=== PATIENT | female | born 1950 | race Caucasian/White ===

== ENCOUNTER 2024-11-18 10:57 | Outpatient (REF) | payer MEDICARE, SELFPAY ==
--- NOTE | ~2024-11-18 | US_ITS ---
EXAMINATION: US RETROPERITONEUM HISTORY: CHRONIC KIDNEY DISEASE ,STAGE 3B, RENAL OSTEO TECHNIQUE: Real-time grayscale ultrasound imaging of the kidneys was performed and images were reviewed. COMPARISON: There are no prior studies available for comparison. FINDINGS: Right kidney: The right kidney measures 9.9 x 4.9 x 4.3 cm. Renal parenchymal echotexture and thickness are normal. Linear echogenic foci likely represent vessels. There are no masses. There is no hydronephrosis or renal calculi. Left Kidney: The left kidney measures 9.5 x 5.1 x 4.5 cm. Renal parenchymal echotexture and thickness are normal. Linear echogenic foci likely represent vessels. There are no masses. There is no hydronephrosis or renal calculi. The urinary bladder is unremarkable. Bilateral ureteral jets are identified. Before voiding, the urinary bladder measured 7.6 x 4.5 x 8.9 cm, for an estimated volume of 159 mL. After voiding, the urinary bladder measured 1.9 x 2.1 x 1.6 cm, for an estimated volume of 3.3 mL. US/US retroperitoneal comp IMPRESSION: 1. Unremarkable retroperitoneal ultrasound. 2. Post void bladder residual of 3.3 mL. Electronically signed by: Jean Marie Sandhu MD 11/18/2024 12:17 PM EDT
--- OUTSIDE RECORDS SUMMARY | 2024-11-18 15:07 | XMS_ITS | Clinical Summary ---
Author Organization [facility] [address] [facility] [address] Address [address] [place] [address] Phone Care Team Providers Care Rd Mechanical Engineer Name Role Phone Lindsay Knott MD Primary Care Prov ider Allergies Active Allergy Reactions Criticality Noted Date Comments Sulfamethoxazole-Trimethoprim Rash 2024 Bee Venom Protein (Honey Bee) Swelling 2024 Cephalexin Rash 08/10/2024 Clindamycin Hcl Rash 05/15/2009 Other Numbness 07/10/2010 Penicillins Rash 01/22/2006 Medications anastrozole (ARIMIDEX) 1 mg Take 1 tablet (1 mg total) by mouth 1 (one) time each day Active ascorbic acid (VITAMIN C) 250 MG chewable tablet Chew 2 tablets (500 mg total) 1 (one) time each day. Active calcium carbonate (CALCIUM ORAL) Take by mouth. Active carBAMazepine (TEGretol) 200 mg tablet Take 1 tablet (200 mg total) by mouth 1 (one) time each day. 1.5 in the am, 1.5 in the evening Active EPINEPHrine (EpiPen 2-Arnold) 0.3 mg/0.3 mL injection Inject 1 Units as directed if needed. bee sting 3 Active levothyroxine (SYNTHROID, LEVOTHROID) 75 mcg tablet Take 125 mcg by mouth 1 (one) time each day. Active MULTIVITAMIN ORAL Take 1 tablet by mouth 1 (one) time each day. Active indapamide (LOZOL) 1.25 mg tablet Take 1 tablet (1.25 mg total) by mouth 1 (one) time each day in the morning. 30 each 11 4 025 Active atorvastatin (LIPITOR) 40 mg tablet TAKE 1 TABLET BY MOUTH EVERY DAY 90 tablet 1 5 Active lisinopriL (PRINIVIL,ZEST RIL) 20 mg tablet TAKE 1 TABLET BY MOUTH EVERY DAY 90 tablet 1 5 Active lisinopriL (PRINIVIL,ZEST RIL) 20 mg tablet TAKE 1 TABLET BY MOUTH EVERY DAY 90 tablet 1 5 025 Discontinued Active Problems Problem Noted Date Diagnosed Date History of retinal detachment 09/06/2024 Cardiac murmur 01/18/2024 Primary hypertension 11/20/2022 Hyperlipidemia 07/26/2021 Overview (01/18/2024): ASCVD risk score 9.0% based on recent labs and blood pressure values with recommendation for moderate intensity statin. Optimal risk is 6.2% Heart murmur 12/24/2018 Overview (01/18/2024): Heart murmur Colon polyp 10/05/2017 Overview (01/18/2024): [place] [facility] 09/2017. 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 10/24 left foot Fatty liver 07/29/2015 Overview (01/18/2024): On u/s Breast atypical lobular hyperplasia 08/24/2012 Trigeminal neuralgia 05/19/2009 Psoriasis 06/09/2006 Hypothyroidism 01/22/2006 Encounters Date Type Department Care Team Description 09/06/2024 1:30 PM EDT Office Visit Adult Medicine [address] [address] Enrique Escalante PA Primary hypertension (Primary Dx); Mixed hyperlipidemia; Hypothyroidism, unspecified type; Breast atypical lobular hyperplasia; History of retinal detachment from Last 3 Months Immunizations Name Administration Dates Next Due Influenza Quadravalent, 0.5m l (Fluad) 65yo and older 02/07/2022 Influenza trivalent, 0.5mL ( Fluad) 65yo and older 11/20/2022,12/11/2020,12/07/2019 Influenza trivalent, with pr eservative (Fluzone; Afluria) 6mo and older 12/07/2019 EnzySurge SARS-CoV-2 COVID-19, mRNA, LNP-S, preservative free 01/01/2021,04/26/2020,04/20/2020 Pneumococcal conjugate 20 va lent (Prevnar 20, PCV 20) 2mo and older 01/15/2023 Td Tetanus diptheria (Tdvax) 7yo and older 09/19,11/16/1998 Tdap Tetanus diptheria acell ular pertussis (Boostrix; Adacel) 7yo and older 09/20/2009 Varicella live (Varivax) 12mo and older 12/15/19 14,11/04/2013 Surgical History Surgery Date Site/Laterality Comments HYSTERECTOMY PROCEDURE: HISTORICAL HYSTERECTOMY Medical History Medical History Date Comments Unspecified hypothyroidism 01/22/2006 DX:Un specified hypothyroidism Other psoriasis and similar disorders 06/09/2006 DX:Other psoriasis and similar disorders Trigeminal neuralgia 05/19/2009 DX:Trigemin al neuralgia H/O: hysterectomy 08/24/2009 DX:H/O: hyster ectomy Fatty liver 07/29/2015 DX:Fatty liver; COMMENT: On u/s Colon polyp 10/05/2017 DX:Colon polyp; COMMENT: [place] dr simon 09/2017. Due in 5 yrs Hyperlipidemia 07/26/2021 DX:Hyperlipidemi a; COMMENT: ASCVD risk score 9.0% based on recent labs and blood pressure values with recommendation for moderate intensity statin. Optimal risk is 6.2% Family History Medical History Relation Name Comments Colon cancer Aunt No Known Problems Daughter 1 No Known Problems Daughter 2 Diabetes Father Heart attack Father Hyperlipidemia Mother Stroke Mother age 79 Hypertension Sister 1 pacemaker Sister 2 No Known Problems Sister 3 No Known Problems Sister 4 No Known Problems Son Relation Name Status Comments Aunt Daughter 1 Alive Daughter 2 Alive Father Mother Sister 1 Alive Sister 2 Alive Sister 3 Alive Sister 4 Alive Son Alive Social History Tobacco Use Types Packs/Day Years Used Date Smoking Tobacco: Former Cigarettes Q uit: 1994 Smokeless Tobacco: Former Tobacco Cessation:Counseling Given: Not Answered Alcohol Use Standard Drinks/Week Comments Yes 0 (1 standard drink = 0.6 oz pur e alcohol) 1-2 drinks on weekends Housing Instability Answer Date Recorde d Are you worried that in the next 2 months you may not have stable housing? No 02/19/2024 Food Access & Nutrition Answer Date Rec orded Do you have access to a vari ety of food including fruits and vegetables? Yes 02/19/2024 Access to Healthcare Answer Date Record ed Within the last 3 months, ho w many times did you visit the emergency department for your medical care? 0 02/19/2024 Health Literacy Answer Date Recorded How often do you need to hav e someone help you when you read instructions, pamphlets, or other written material from your doctor or pharmacy? Never 02/19/2024 Caregiver: How often do you need to have someone help you when you read instructions, pamphlets, or other written material from your doctor or pharmacy? Not on file 02/19/2024 Financial Risk Answer Date Recorded How hard is it for you to pa y for the very basics like food, housing, medical care, and air conditioning / heating? Not very hard 02/19/2024 Transportation Answer Date Recorded Has the lack of transportati on kept you from meetings, work, or from getting things needed for daily living? No Has the lack of transportati on kept you from medical appointments or from getting medications? No 02/19/2024 Social Isolation Answer Date Recorded How often do you feel lonely or isolated from th ose around you? Never 02/19/2024 Food Risk Answer Date Recorded Within the past 12 months we worried whether our food would run out before we got money to buy more. Never true 02/19/2024 Within the past 12 months th e food we bought just didn't last and we didn't have money to get more. Never true 02/19/2024 Dependent Care Answer Date Recorded Do you need help finding or paying for care for your loved ones. For example, rn maternal child or elderly care for an older adult? No 02/19/2024 Education Answer Date Recorded Do you think completing more education or training, like finishing a GED, going to college, or learning a trade, would be helpful for you? No 02/19/2024 Employment and Income Answer Date Recor ded During the last four weeks, have you been actively looking for work? No 02/19/2024 Living Situation Answer Date Recorded What is your living situation? 1 04/21/2023 Comments No Sex and Gender Information Value Date Recorded Sex Assigned at Female 01/12/2024 11:18 AM EST Legal Sex Female 8:57 PM EST Gender Identity Female 01/12/2024 11:18 AM EST Sexual Orientation Not on file Occupation Industry Job Start Date Job End Date RETIRED Not on file Not on file Not on file Obstetrics History Last Filed Vital Signs Vital Sign Reading Time Taken Comments Blood Pressure 124/88 09/06/2024 1:14 PM EDT Pulse 73 09/06/2024 1:14 PM EDT Temperature 36.8 C (98.2 F) 09/06/2024 1:14 PM EDT Respiratory Rate - - Oxygen Saturation - - Inhaled Oxygen Concentration - - Weight 86.6 kg (191 lb) 09/06/2024 1:14 PM EDT Height 165.1 cm (5' 5 ) 09/06/2024 1:14 PM EDT Body Mass Index 31.78 09/06/2024 1:14 PM EDT Plan of Treatment Upcoming Encounters Date Type Department Care Team (Late st Contact Info) Description 03/08/2025 9:30 AM EST Office Visit Adult Medicine [facility] [address] [place] [address] Enrique Escalante PA [address] [place] [address] 03/15/2025 1:30 PM EST Consult Nephrology - [address] [place] [phone] Anthony Gonzáles MD [address] [place] [id number] Health Maintenance Due Date Last Done Comments Breast Cancer Screening 1950 Zoster Vaccines (1 of 2) 02/08/2014 12/14/2013, 10/09 COVID-19 Vaccine ( season) 2024 12/20/2021, 01/01/2021, 05/18/2020, Additional history exists Influenza Vaccine (#1) 2024 , 02/07/2022, 12/11/2020, Additional history exists Medicare Annual Wellness Visit 02/18/2025 02/19/2024 Social Influencers of Health Screening 02/18/2025 02/19/2024 Falls Risk Assessment 09/06/2025 09/06/2024, 024 Hypertension/CHF/CAD Annual BMP Blood Test 09/06/2025 09/06/2024, 05/04/2024, 04/13/2024, Additional history exists RSV Immunization Adult Patients (1 - 1-dose 75+ series) 2027 Colorectal Cancer Screening: Colonoscopy 01/21/2028 01/20/2023, 10/05/2017 Cholesterol Screening (Lipid Panel) 03/05/2029 03/05/2024 DTaP,Tdap,and Td Vaccines (4 - Td or Tdap) 09/19/2032 09/19/2022, 09/20/2009, 11/16/1998 Osteoporosis Screening (Bone Density Screening) 09/08/2034 09/08/2024, 07/25/2024 Varicella Vaccines Aged Out 12/14/2013, 11/04/2013 No longer eligible based on patient's age to complete this topic Pneumococcal Vaccine: 50+ Years Completed 01/15/2023 Depression Screening Completed 09/01/2024 Hepatitis C Screening Completed 11/02/2024, 013 HIB Vaccines Aged Out No longer eligi ble based on patient's age to complete this topic HPV Vaccines Aged Out No longer eligi ble based on patient's age to complete this topic Hepatitis A Vaccines Aged Out No long er eligible based on patient's age to complete this topic Hepatitis B Vaccines Aged Out No long er eligible based on patient's age to complete this topic IPV Vaccines Aged Out No longer eligi ble based on patient's age to complete this topic MMR Vaccines Aged Out No longer eligi ble based on patient's age to complete this topic Meningococcal ACWY Vaccine Aged Out N o longer eligible based on patient's age to complete this topic Meningococcal B Vaccine Aged Out No l onger eligible based on patient's age to complete this topic RSV Immunization Patients Under 20 months Aged Out No longer eligible based on patient's age to complete this topic Procedures Procedure Name Priority Date/Time Associated Diagnosis Comments BD BONE DENSITY DXA APPENDICULAR SKELETON Routine 09/08/2024 3:56 PM EDT BASIC METABOLIC PANEL Routine 09/06/2024 2:00 PM EDT Primary hypertension LIPID PANEL WITH REFLEX TO DIRECT LDL Routine 03/05/2024 9:59 AM EST Mixed hyperlipidemia HM COLONOSCOPY Routine 10/05/2017 HEPATITIS C SCREENING Routine 11/02/2012 from Last 3 Months or Most Recently Relevant to Health Maintenance Results * BD Bone Density DXA Appendicular Skeleton (09/08/2024 3:56 PM EDT) Anatomical Region Laterality Modality Body Bone Densitometr y Enrique CRUZ IMG DXA PROCEDURES Final Resul t * (ABNORMAL) Basic metabolic panel (09/06/2024 2:00 PM EDT) Sodium 137 133 - 145 mmol/L LAB CHEMISTRY METHOD 09/06/2024 3:46 PM EDT [facility] Potassium 4.9 3.5 - 5.5 mmol/L LAB CHEMISTRY METHOD 09/06/2024 3:46 PM EDT [facility] Chloride 105 96 - 110 mmol/L LAB CHEMISTRY METHOD 09/06/2024 3:46 PM T [facility] CO2 25 21 - 32 mmol/L LAB CHEMISTRY METHOD 09/06/2024 3:46 PM T [facility] Anion Gap 7 3 - 11 LAB CHEMISTRY METHOD 09/06/2024 3:46 PM EDT [facility] Glucose 95 70 - 100 mg/dL LAB CHEMISTRY METHOD 09/06/2024 3:46 PM EDT [facility] BUN 33(H) 5 - 25 mg/dL LAB CHEMISTRY METHOD 09/06/2024 3:46 PM EDT [facility] Creatinine 1.40(H) 0.50 - 1.10 mg/dL LAB CHEMISTRY METHOD 09/06/2024 3:46 PM EDT [facility] eGFR 40(L) >=60 mL/min/1. 73m2 LAB CHEMISTRY METHOD 09/06/2024 3:46 PM EDT [facility] Comment:Calculation based on the Chronic Kidney Disease Epidemiology Collaboration (CKD-EPI) equation refit without adjustment for race. BUN/Creatinine Ratio 23.6 LAB CHEMISTRY METHOD 09/06/2024 3:46 PM EDT [facility] Calcium 9.3 8.5 - 10.5 mg/dL LAB CHEMISTRY METHOD 09/06/2024 3:46 PM EDT [facility] Blood Venous blood specimen / Unknown Venipuncture / Unknown 09/06/2024 2:00 PM EDT 09/06/2024 2:00 PM EDT us Enrique CRUZ LAB BLOOD ORDERABLES Final Res ult [facility] [address] [place] [address], * (ABNORMAL) Lipid panel with reflex to direct LDL (03/05/2024 9:59 AM EST) Cholesterol 219(H) 0 - 200 mg/dL LAB CHEMISTRY METHOD 03/05/2024 12:21 PM EST [facility] Triglycerides 41 0 - 150 mg/dL LAB CHEMISTRY METHOD 03/05/2024 12:21 PM EST [facility] HDL 113 >=40 mg/dL LAB CHEMISTRY METHOD 03/05/2024 12:21 PM EST [facility] LDL Calculated 98 0 - 100 mg/dL LAB CHEMISTRY METHOD 03/05/2024 12:21 PM EST [facility] VLDL Cholesterol Eric 8.2 mg/dL LAB CHEMISTRY METHOD 03/05/2024 12:21 PM EST [facility] Non HDL Chol. (LDL+VLDL) 106 <145 mg/dL LAB CHEMISTRY METHOD 03/05/2024 12:21 PM EST [facility] Chol/HDL Ratio 1.9 0.0 - 4.4 LAB CHEMISTRY METHOD 03/05/2024 12:21 PM EST [facility] Blood Venous blood specimen / Unknown Venipuncture / Unknown 03/05/2024 9:59 AM EST 03/05/2024 9:59 AM EST Enrique CRUZ LAB BLOOD ORDERABLES Final Res ult [facility] [address] [place] [address], * Colonoscopy (10/05/2017) Colonoscopy no interpretation , abstracted Anatomical Region Laterality Modality Other Historical Provider HEALTH MAINTENANCE Final Result * Hepatitis C Screening (11/02/2012) Pathologist [facility] Hepatitis C Screening abstracted Historical Provider HEALTH MAINTENANCE Final Result from Last 3 Months or Most Recently Relevant to Health Maintenance Insurance MEDICARE [facility] Care Teams Rd Mechanical Engineer Relationship Specialty Start Date End Date Lindsay Knott MD PCP - General Internal Medicine 01/29/21
--- OUTSIDE RECORDS SUMMARY | 2024-11-18 15:07 | XMS_ITS | Clinical Summary ---
Author Organization [facility] Address [address] [place] [address] [place] [address] Phone Care Team Providers Care Regroover Name Role Phone Lindsay Knott MD Primary Care Pr ovider Allergies Active Allergy Reactions Criticality Noted Date Comments Cephalexin Rash Low 04/21/2024 Clindamycin Rash Low 05/15/2009 Other Other (see comments) 07/10/2010 Penicillins Rash Low 01/22/2006 Other Reaction(s): itching Sulfamethoxazole-Trimet hoprim Rash Low 06/27/2021 Medications anastrozole (ARIMIDEX) 1 MG chemo tablet Take 1 tablet by mouth 04/07/2021 Active ascorbic acid (VITAMIN C) 250 MG chewable tablet Chew 06/13/2022 Active atorvastatin (LIPITOR) 40 MG tablet Take 40 mg by mouth in the morning. 06/13/2022 Active carBAMazepine (TEGretol) 200 MG tablet Take 200 mg by mouth in the morning. 05/11/2013 Active levothyroxine (Synthroid) 125 MCG tablet Take 125 mcg by mouth every morning 06/10/2021 Active LISINOPRIL PO Take 20 mg by mouth 12/13/2022 Active lisinopril 20 MG tablet Take 20 mg by mouth in the morning. 05/04/2024 Active indapamide (LOZOL) 2.5 MG tablet Take 2.5 mg by mouth 1 (one) time each day in the morning Active Multiple Vitamin (multivitamin) tablet Take 1 tablet by mouth 1 (one) time each day Active Calcium Carb-Cholecalci ferol (CALCIUM 500 +D PO) Take by mouth Active Active Problems Problem Noted Date Diagnosed Date Microcalcifications of the breast 10/28/2024 Benign mammary dysplasia 10/28/2024 Stage 3b chronic kidney disease 10/28/2024 Renal osteodystrophy 10/28/2024 H/O: retinal detachment 09/06/2024 Malignant tumor of breast 04/16/2023 Essential hypertension 11/20/2022 Hyperlipidemia 07/26/2021 Overview (10/12/2024): ASCVD risk score 9.0% based on recent labs and blood pressure values with recommendation for moderate intensity statin. Optimal risk is 6.2% Cardiac murmur 12/24/2018 Overview (10/28/2024): Heart murmur Polyp of colon 10/05/2017 Overview (10/12/2024): [place] [facility] simon 09/2017. 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 Overview (10/28/2024): S/p 7.6 mCi I-131 in 1999 for hyperthyroidism due to Graves Encounters Date Type Department Care Team Description 11/02/2024 Orders Only [facility] [address] [place] [address] [address] [place] [address] Nathanael Gonzalez MD 10/28/2024 4:15 PM EDT Office Visit [facility] [address] [place] [address] Nathanael Gonzalez MD Stage 3b chronic kidney disease (HCC) (Primary Dx); Essential hypertension; Renal osteodystrophy from Last 3 Months Immunizations Immunization Administration Dates Next Due Influenza Vaccine, Quadrival ent, Adjuvanted 02/07/2022 Influenza, Trivalent, Adjuvanted 11/20/2022,10/0 06/2020,12/07/2019 Pfizer SARS-COV-2 01/01/2021,,04/26/2020,2020 Td 09/19/2022,11/16/1998 Tdap 09/20/2009 Varicella 12/14/2013,11/04/2013 Family History Relation Status Comments Father Mother Social History Tobacco Use Types Packs/Day Years Used Date Smoking Tobacco: Never Smokeless Tobacco: Never Tobacco Cessation:Counseling Given: Not Answered Alcohol Use Standard Drinks/Week Comments Never 0 (1 standard drink = 0.6 oz pur e alcohol) Comments Unknown Sex and Gender Information Value Date Recorded Sex Assigned at Not on file Legal Sex Female 1:12 PM EDT Gender Identity Not on file Sexual Orientation Not on file Last Filed Vital Signs Vital Sign Reading Time Taken Comments Blood Pressure 126/60 10/28/2024 1:54 PM EDT Pulse 92 10/28/2024 1:54 PM EDT Temperature - - Respiratory Rate - - Oxygen Saturation 98% 10/28/2024 1:54 PM EDT Inhaled Oxygen Concentration - - Weight 86.9 kg (191 lb 9.6 oz) 10/28/2024 1:54 P M EDT Height - - Body Mass Index - - Plan of Treatment Upcoming Encounters Date Type Department Care Team (Late st Contact Info) Description 12/06/2024 1:45 PM EDT [facility] Visit [facility] [address] [place] [address] Nathanael Gonzalez MD [address] [facility] [address] [place] [address] Health Maintenance Due Date Last Done Comments Breast Cancer Screening 1950 Pneumococcal Vaccine: 50+ Years (1 of 2 - PCV) 1971 Colorectal Cancer Screening: Annual FOBT 2001 Colorectal Cancer Screening: Colonoscopy 2001 Colorectal Cancer Screening: Sigmoidoscopy 2001 Influenza Vaccine (#1) 2024 3, 02/07/2022, 12/11/2020, Additional history exists Hepatitis B Vaccine Aged Out No longe r eligible based on patient's age to complete this topic Procedures Procedure Name Priority Date/Time Associated Diagnosis Comments ANTINUCLEAR ANTIBODIES TITER AND PATTERN Routine 11/02/2024 10:09 AM EDT KAPPA/LAMBDA FREE LT CHAINS W/RATIO Routine 11/02/2024 10:09 AM EDT INTERPRETATION Routine 11/02/2024 10:09 AM EDT HEPATITIS B CORE ANTIBODY, IGM Routine 11/02/2024 10:09 AM EDT PTH, INTACT Routine 11/02/2024 10:09 AM EDT HEPATITIS B SURFACE ANTIGEN Routine 11/02/2024 10:09 AM EDT MAGNESIUM Routine 11/02/2024 10:09 AM EDT VITAMIN D 25 HYDROXY Routine 11/02/2024 10:09 AM EDT C3 COMPLEMENT Routine 11/02/2024 10:09 AM EDT HEPATITIS B SURFACE AB (QUAL) Routine 11/02/2024 10:09 AM EDT C4 COMPLEMENT Routine 11/02/2024 10:09 AM EDT HEPATITIS C VIRUS (HCV) ANTIBODY CASCADE TO QUANTITATIVG Routine 11/02/2024 10:09 AM EDT URINE ALBUMIN / CREATININE RATIO Routine 11/02/2024 10:09 AM EDT PROTEIN / CREATININE RATIO, URINE Routine 11/02/2024 10:09 AM EDT RENAL FUNCTION PANEL Routine 11/02/2024 10:09 AM EDT PROTEIN ELEC + INTERP, SERUM Routine 11/02/2024 10:09 AM EDT URINALYSIS WITH MICROSCOPIC Routine 11/02/2024 10:09 AM EDT DARIUS 12 PLUS PROFILE, DO ALL (RDL) Routine 11/02/2024 10:09 AM EDT CBC AND DIFFERENTIAL Routine 11/02/2024 10:09 AM EDT MICROSCOPIC EXAMINATION - DO NOT USE Routine 11/02/2024 10:09 AM EDT from Last 3 Months Results * (ABNORMAL) DARIUS 12 Plus Profile, Do All (RDL) (11/02/2024 10:09 AM EDT) Anti-dsDNA by Tanesha (RDL) <8.0 <8.0 IU/mL [facility] Anti-SM AB (RDL) <20 <20 Units [facility] Anti-U1 NETWORK SUPPORT ANALYST AB (RDL) <20 <20 Units [facility] [phone] Anti-RO (SS-A) Ab (RDL) <20 <20 Units [facility] [phone] Anti-LA (SS-B) AB (RDL) <20 <20 Units [facility] Anti-SCL-70 AB (RDL) <20 <20 Units [facility] Anticardiolipin IgG <15 <15 GPL U/mL [facility] [phone] Anticardiolipin IgA <12 <12 APL U/mL [facility] Anticardiolipin IgM 13 <13 MPL U/mL [facility] [phone] C3 Complement (RDL) 178 90 - 180 mg/dL [facility] C4 Complement (RDL) 34 10 - 40 mg/dL [facility] [phone] Comment:Please note refere nce interval change Thyroid Peroxidase Ab <9.0 <9.0 IU/mL [facility] [phone] Anti-Chromatin Ab, IgG (RDL) <20 <20 Units [facility] Anti-CCP Ab, IgG / IgA (RDL) <20 <20 Units [facility] Rheumatoid Factor by Turb RDL <14 <14 IU/mL [facility] Comment: Interpretation for Anti-Sm, Anti-U1 NETWORK SUPPORT ANALYST, Anti-Ro, Anti-La: Negative: <20 Weak Positive: 20 - 39 Moderate Positive: 40 - 80 Strong Positive: >80 Interpretation for Anti-CCP Ab, IgG / IgA: Negative: <20 Weak Positive: 20 - 39 Moderate Positive: 40 - 59 Strong Positive: >59 Interpretation for Anti-Cardiolipin Ab: Negative: GPL <15, APL <12, MPL <13 Indeterminate: GPL 15-20, APL 12-20, MPL 13-20 Low Positive: GPL, APL, MPL >20 - 40 Med Positive: GPL, APL, MPL >40 - 80 High Positive: GPL, APL, MPL >80 SLE classification criteria are based on Med to High titer (>40) Anti-Cardiolipin Ab (aCL). aCL may be elevated transiently with certain infections and may increase spuriously in the presence of rheumatoid factor. Anti-Nuclear Ab by IFA (RDL) Positive( A) Negative [facility] [phone] Anti-Centromere Ab <1:40 <1:40 [facility] 11/02/2024 10:0 9 AM EDT 11/02/2024 us Nathanael Gonzalez MD LAB BLOOD ORDERABLES Final Re sult [facility] [place] [address] [place] [phone] * Hepatitis C Virus (HCV) Ab [place] to Quantitative PCR and Genotyping (11/02/2024 10:09 AM EDT) Pathologist [facility] HCV Ab Non Reactive Non Reactive [facility] 11/02/2024 10:0 9 AM EDT 11/02/2024 us Nathanael Gonzalez MD LAB BLOOD ORDERABLES Final Re sult [facility] [address], [address] [place] [address] * Protein Elec + Interp, Serum (11/02/2024 10:09 AM EDT) Pathologist [facility] Total Protein 7.0 6.0 - 8.5 g/dL [facility] [phone] Albumin 3.5 2.9 - 4.4 g/dL [facility] Zmjlu-[id number]-Kjcwudyz 0.3 0.0 - 0.4 g/dL [facility] Dgsty-4-Nlobgtdv 0.9 0.4 - 1.0 g/dL [facility] [phone] Beta Globulin 1.0 0.7 - 1.3 g/dL [facility] Gamma Globulin in Serum 1.4 0.4 - 1.8 g/dL [facility] M-Stewart Serum Not Observed Not Observed g/dL [facility] Globulin, Total 3.5 2.2 - 3.9 g/dL [facility] A/G Ratio 1.0 0.7 - 1.7 [facility] Please note Comment [facility] Comment: Protein electrophoresis scan will follow via computer, mail, or applications processor delivery. P E INTERPRETATION Comment [facility] Comment: The SPE pattern appears unremarkable. Evidence of monoclonal protein is not apparent. PDF . [facility] 11/02/2024 10:0 9 AM EDT 11/02/2024 Nathanael Gonzalez MD LAB BLOOD ORDERABLES Final Re sult [facility] [address] [place] [address] * (ABNORMAL) DARIUS Titer and Pattern (11/02/2024 10:09 AM EDT) Homogeneous Pattern 1:160(H) <1:40 [facility] Note: Comment [facility] Comment:DARIUS performed by Ind irect Fluorescent Antibody (IFA) 11/02/2024 10:0 9 AM EDT 11/02/2024 Nathanael Gonzalez MD LAB BLOOD ORDERABLES Final Re sult Performing Organization Address City/[facility]/ZIP Co de Phone Number [facility] [address] [place] [phone] * INTERPRETATION (11/02/2024 10:09 AM EDT) Interpretation Comment [facility] [phone] Comment: Not infected with HCV unless early or acute infection is suspected (which may be delayed in an immunocompromised individual), or other evidence exists to indicate HCV infection. 11/02/2024 10:0 9 AM EDT 11/02/2024 Nathanael Gonzalez MD LAB [id number] SOLICITED RESULTS Final Result [facility] [address], [address] [place] [address] * Hepatitis B Surface Ab (Qual) (11/02/2024 10:09 AM EDT) Pathologist [facility] Hepatitis B Surface Ab Qual Non Reactive [facility] Comment: Non Reactive: Not immune to HBV infection. Anti-HBs undetectable or less than 10 mIU/mL. Reactive: Evidence of HBV immunity. Anti-HBs levels greater than 10 mIU/mL. 11/02/2024 10:0 9 AM EDT 11/02/2024 Nathanael Gonzalez MD LAB BLOOD ORDERABLES Final Re sult [facility] [place] [address], [address] [place] [address] * Microscopic Examination (11/02/2024 10:09 AM EDT) [facility] WBC, Urine 0-5 0 - 5 /hpf [facility] RBC, Urine None seen 0 - 2 /hpf [facility] Squamous Epithelial, Urine None seen 0 - 10 /hpf [facility] Casts None seen None seen /lpf [facility] Bacteria, Urine None seen None seen/Few [facility] 11/02/2024 10:0 9 AM EDT 11/02/2024 Nathanael Gonzalez MD LAB MICROBIOLOGY - GENERAL OR DERABLES Final Result [facility] [address] [place] [address] * Protein, Total, Random Urine w/Creatinine (Protein/Creat Ratio) (11/02/2024 10:09 AM EDT) Creatinine, Ur 54.3 Not Estab. mg/dL [facility] Protein, Ur 8.3 Not Estab. mg/dL [facility] Urine Protein/Creatin ine Ratio 153 0 - 200 mg/g creat [facility] 11/02/2024 10:0 9 AM EDT 11/02/2024 Nathanael Gonzalez MD LAB URINE ORDERABLES Final Re sult Performing Organization Address City/[facility]/ZIP Co de Phone Number [facility] [address] [place] [address] * (ABNORMAL) [place]/Lambda free LT chains w/ratio, Serum (11/02/2024 10:09 AM EDT) Free [place] Lt Chains, S 32.2(H) 3.3 - 19.4 mg/L [facility] Free [place]ambda Lt Chains, S 26.7(H) 5.7 - 26.3 mg/L [facility] Free [place]/Lambda Ratio 1.21 0.26 - 1.65 [facility] 11/02/2024 10:0 9 AM EDT 11/02/2024 Nathanael Gonzalez MD LAB BLOOD ORDERABLES Final Re sult [facility] [address] [place] [address] * Urine Albumin / Creatinine Ratio (11/02/2024 10:09 AM EDT) Albumin, Urine <3.0 Not Estab. ug/mL [facility] Albumin/Creatin ine Ratio <6 0 - 29 mg/g creat [facility] Comment: Normal: 0 - 29 Moderately increased: 30 - 300 Severely increased: >300 11/02/2024 10:0 9 AM EDT 11/02/2024 Nathanael Gonzalez MD LAB URINE ORDERABLES Final Re sult [facility] [address] [place] [address] * Hepatitis B core antibody, IgM (11/02/2024 10:09 AM EDT) Hep B Core IgM Negative Negative [facility] 11/02/2024 10:0 9 AM EDT 11/02/2024 Nathanael Gonzalez MD LAB BLOOD ORDERABLES Final Re sult Performing Organization Address City/[facility]/ZIP Co de Phone Number [facility] [address], [address] [place] [address] * Vitamin D 25 Hydroxy (11/02/2024 10:09 AM EDT) Vitamin D, 25-OH, Total 42.1 30.0 - 100.0 ng/mL [facility] Comment: Vitamin D deficiency has been defined by the [place] of Medicine and an Endocrine Society practice guideline as a level of serum 25-OH vitamin D less than 20 ng/mL (1,2). The Endocrine Society went on to further define vitamin D insufficiency as a level between 21 and 29 ng/mL (2). 1. IOM ([place] of Medicine). 2010. Dietary reference intakes for calcium and D. [place]ast [place]: The National Academies Press. 2. Federico MEYERS, Cherelle SMITH, Giacomo GREY, et al. Evaluation, treatment, and prevention of vitamin D deficiency: an Endocrine Society clinical practice guideline. JCEM. 2010; 96(7):1911-30. 11/02/2024 10:0 9 AM EDT 11/02/2024 Nathanael Gonzalez MD LAB BLOOD ORDERABLES Final Re sult [facility] [address] [place] [address] * Hepatitis B Surface Antigen (11/02/2024 10:09 AM EDT) Hep B Surface Ag Negative Negative [facility] 11/02/2024 10:0 9 AM EDT 11/02/2024 Nathanael Gonzalez MD LAB BLOOD ORDERABLES Final Re sult Performing Organization Address City/[facility]/ZIP Co de Phone Number [facility] [address], [address] [place] [address] * (ABNORMAL) Urinalysis with microscopic (11/02/2024 10:09 AM EDT) Specific [place], Urine 1.011 1.005 - 1.030 [facility] pH Urine 6.0 5.0 - 7.5 [facility] Color, Urine Yellow Yellow [facility] Appearance Urine Clear Clear [facility] WBC Esterase Urine 2+(A) Negative [facility] Protein, Ur Negative Negative/Tra ce [facility] [phone] Glucose, Ur Negative Negative [facility] Ketones, Urine Negative Negative [facility] [phone] Blood Urine Negative Negative [facility] Bilirubin Urine Negative Negative [facility] Urobilinogen Urine 0.2 0.2 - 1.0 mg/dL [facility] Nitrite, Urine Negative Negative [facility] Microscopic Examination See below: [facility] Comment:Microscopic was noris cated and was performed. 11/02/2024 10:0 9 AM EDT 11/02/2024 us Nathanael Gonzalez MD LAB URINE ORDERABLES Final Re sult [facility] [address] [place] [address] * (ABNORMAL) CBC and Differential (11/02/2024 10:09 AM EDT) WBC 5.6 3.4 - 10.8 x10E3/uL [facility] RBC 3.36(L) 3.77 - 5.28 x10E6/uL [facility] Hemoglobin 10.0(L) 11.1 - 15.9 g/dL [facility] Hematocrit 31.0(L) 34.0 - 46.6 % [facility] MCV 92 79 - 97 fL [facility] MCH 29.8 26.6 - 33.0 pg [facility] MCHC 32.3 31.5 - 35.7 g/dL [facility] RDW 11.9 11.7 - 15.4 % [facility] Platelets 227 150 - 450 x10E3/uL [facility] Neutrophils Relative 64 Not Estab. % [facility] Lymphocytes Relative 23 Not Estab. % [facility] Monocytes 8 Not Estab. % [facility] Eosinophils Relative 4 Not Estab. % [facility] Basophils Relative 1 Not Estab. % [facility] Neutrophils Absolute 3.6 1.4 - 7.0 x10E3/uL [facility] Lymphocytes Absolute 1.3 0.7 - 3.1 x10E3/uL [facility] Monocytes Absolute 0.5 0.1 - 0.9 x10E3/uL [facility] Eosinophils Absolute 0.2 0.0 - 0.4 x10E3/uL [facility] Basophils Absolute 0.0 0.0 - 0.2 x10E3/uL [facility] Immature Granulocytes 0 Not Estab. % [facility] Immature Grans (Absolute) 0.0 0.0 - 0.1 x10E3/uL [facility] 11/02/2024 10:0 9 AM EDT 11/02/2024 Nathanael Gonzalez MD LAB BLOOD ORDERABLES Final Re sult [facility] [address] [place] [address] * C3 Complement (11/02/2024 10:09 AM EDT) C3 Complement 150 82 - 167 mg/dL [facility] 11/02/2024 10:0 9 AM EDT 11/02/2024 Nathanael Gonzalez MD LAB BLOOD ORDERABLES Final Re sult [facility] [address] [place] [address] * C4 Complement (11/02/2024 10:09 AM EDT) C4 Complement 29 12 - 38 mg/dL [facility] 11/02/2024 10:0 9 AM EDT 11/02/2024 Nathanael Gonzalez MD LAB BLOOD ORDERABLES Final Re sult [facility] [address] [place] [address] * PTH, Intact (11/02/2024 10:09 AM EDT) PTH 37 15 - 65 pg/mL [facility] 11/02/2024 10:0 9 AM EDT 11/02/2024 Nathanael Gonzalez MD LAB BLOOD ORDERABLES Final Re sult Performing Organization Address City/[facility]/ZIP Co de Phone Number [facility] [address] [place] [address] * Magnesium (11/02/2024 10:09 AM EDT) Magnesium 2.0 1.6 - 2.3 mg/dL [facility] 11/02/2024 10:0 9 AM EDT 11/02/2024 Nathanael Gonzalez MD LAB BLOOD ORDERABLES Final Re sult Performing Organization Address City/[facility]/ZIP Co de Phone Number [facility] [address] [place] [address] * (ABNORMAL) Renal Function Panel (11/02/2024 10:09 AM EDT) Glucose 99 70 - 99 mg/dL [facility] BUN 32(H) 8 - 27 mg/dL [facility] Creatinine 1.23(H) 0.57 - 1.00 mg/dL [facility] eGFR CKD-EPI CR 2020 47(L) >59 mL/min/1.7 3 [facility] BUN/Creatinine Ratio 26 12 - 28 [facility] Sodium 133(L) 134 - 144 mmol/L [facility] Potassium 5.0 3.5 - 5.2 mmol/L [facility] Chloride 98 96 - 106 mmol/L [facility] Bicarbonate (CO2) 20 20 - 29 mmol/L [facility] Calcium 9.3 8.7 - 10.3 mg/dL [facility] Albumin 4.2 3.8 - 4.8 g/dL [facility] Phosphorus 3.2 3.0 - 4.3 mg/dL [facility] 11/02/2024 10:0 9 AM EDT 11/02/2024 us Nathanael Gonzalez MD LAB BLOOD ORDERABLES Final Re sult [facility] [address] [place] [address] from Last 3 Months Insurance Medicare [facility] Care Teams Regroover Relationship Specialty Start Date End Date Lindsay Knott MD [address] [place] [id number] PCP - General Internal Medicine 10/07/24
== END 2024-11-18 10:58 | disposition home or self-care (01) ==
LOC: HO.US 10:57
PROVIDERS: Visit Provider Internal Medicine Nephrology
DX: I12.9 Hypertensive chronic kidney disease with stage 1 through stage 4 chronic kidney disease, or unspecified chronic kidney disease (principal); N18.32 Chronic kidney disease, stage 3b; N25.0 Renal osteodystrophy
CPT/HCPCS: 76770

== ENCOUNTER → 2024-11-18 11:00 | Outpatient (BNV) | payer MEDICARE, SELFPAY | PROVIDERS: Visit Provider Radiology Diagnostic Radiology | DX: N18.32 Chronic kidney disease, stage 3b (principal) | CPT/HCPCS: 76770 ==

== ENCOUNTER 2024-12-22 09:45 | Outpatient (AMB) | payer MEDICARE, SELFPAY ==
--- NOTE | 2024-12-22 10:06 | A.OFFVIS_ITS ---
Intake Visit Reasons: 1 yr follow up Allergies clindamycin Allergy (Unknown, Verified 12/21/24 11:11) Unknown Penicillins Allergy (Unknown, Verified 12/21/24 11:11) Unknown HPI Comments Details: 74 y/o woman with hypothyroidism, a brain MRI revealing white matter changes suggestive of demylination without any exacerbation type of symptoms, and right sided trigeminal neuralgia. She is presenting with a request for a prescription refill for facial pain. Her facial pain remains relatively controlled with carbamazepine, but the current absence of medication is causing transient issues. Additionally, she consults with a power sewing machine operator due to concerns over kidney function marked by elevated BUN and creatinine levels. Hypertension management is also ongoing. The patient experienced a retinal detachment earlier in the summer, resulting in a cataract for which surgery is scheduled. She plans travel soon, affecting her prescription retrieval method. [facility] Medical History (Updated 12/22/24 @ 10:08 by Yolanda Yepez MD) Obesity Trigeminal neuralgia Review of Systems Const Details: - Neurological: Reports facial pain, controlled with medication. - Renal: Reports consultation with power sewing machine operator for fluctuating BUN and creatinine levels. - Cardiovascular: Reports hypertension. - Ophthalmological: Reports past retinal detachment and current cataract with planned surgery. Physical Exam Neuro Other: Mental Status: Alert and oriented to person, place, and time. Normal attention. Normal spontaneous speech, fluency, and comprehension. No obvious issues with mood and memory. Affect is appropriate. Cranial Nerves: CN II: Visual michaels full to confrontation, visual acuity intact. CN III, IV, : Pupils equal, round, reactive to light and accommodation. Extraocular movements are normal. CN V: Facial sensation is normal. CN VII: Facial movements symmetrical. CN VIII: Hearing intact to bedside conversation is normal. CN IX, X: Palate elevates symmetrically. CN XI: Shoulder shrug and head turn symmetrical. CN XII: Tongue midline without atrophy or fasciculations. Coordination: Mdkfkm-cz-foxj and rzgx-mr-dzco testing normal. No dysmetria. Gait and Station: No obvious gait abnormality. No ataxia or instability. Extrapyramidal: Full facial expressions and blinking. No rigidity. Movements are appropriate with no tremor or abnormality. Speech: Normal; no dysarthria or tremor. Assessment & Plan Assessment & Plan (1) Trigeminal neuralgia: Comment: MRI brain at in 2009: WM changes suggestive of demyelinating disease (reported). Code(s): G50.0 - Trigeminal neuralgia Category: Medical Plan Impression recommendations: 74 years old woman with trigeminal neuralgia controlled with 200 mg carbamazepine twice a day. Medications: New carbamazepine (Tegretol) 200 mg PO BID 180 tabs 0RF 90 days carbamazepine (Tegretol) 200 mg PO BID 60 tabs 0RF 30 days Coding Level of Care Code Est Pt Level 4 (57064) Diagnoses Trigeminal neuralgia G50.0
--- OUTSIDE RECORDS SUMMARY | 2024-12-22 11:14 | XMS_ITS | Clinical Summary ---
Author Organization [facility] [address] [facility] lding Address [address] [place] [address] Phone Care Team Providers Care Interventional Pain Physician Name Role Phone Lindsay Knott MD Primary [...] Units as directed if needed. bee sting 09/19/2022 Active levothyroxine (SYNTHROID, LEVOTHROID) 75 mcg tablet Take 125 mcg by mouth 1 (one) time each day. Active MULTIVITAMIN ORAL Take 1 tablet by mouth 1 (one) time each day. Active indapamide (LOZOL) 1.25 mg tablet Take 1 tablet (1.25 mg total) by mouth 1 (one) time each day in the morning. 30 each 11 02/20/2024 02/20/20 25 Active atorvastatin (LIPITOR) 40 mg tablet TAKE 1 TABLET BY MOUTH EVERY DAY 90 tablet 1 10/05/2024 Active lisinopriL (PRINIVIL,ZESTR IL) 20 mg tablet TAKE 1 TABLET BY MOUTH EVERY DAY 90 tablet 1 10/26/2024 Active Active Problems Problem Noted Date Diagnosed [...] Encounters Date Type Department Care Team Description 11/24/2024 Telephone Adult Medicine - [place] [address] [place] [address] Lindsay Knott MD from Last 3 Months Immunizations Immunization Administration Dates Next Due Influenza Quadravalent, 0.5m l (Fluad) 65yo and older 02/07/2022 Influenza trivalent, 0.5mL ( Fluad) 65yo and older 11/20/2022,12/11/2020,12/07/2019 Influenza trivalent, with pr eservative (Fluzone; Afluria) 6mo and older 12/07/2019 Pfizer SARS-CoV-2 COVID-19, mRNA, LNP-S, preservative free 01/01/2021,04/26/2020,04/20/2020 [...] u/s Colon polyp 10/05/2017 DX:Colon polyp; COMMENT: [place] dr simon 09/2017. Due in 5 yrs [...] care for your loved ones. For example, early childhood services coordinator or elderly care for an older adult? [...] Date Recorded What is your living situation? Unrecognized valu e 02/19/2024 Comments No Sex and Gender Information Value [...] Care Team (Late st Contact Info) Description 01/21/2025 9:00 AM EST Consult Adult Medicine [facility] [address] [place] [address] Enrique Escalante PA [address] [place] [address] 03/08/2025 9:30 AM EST Office Visit Adult Medicine [facility] [address] [place] [address] Enrique Escalante PA [address] [place] [address] 03/15/2025 1:30 PM EST Consult Nephrology - [facility] [address] [place] [address] Anthony Gonzáles MD [address] [place] [address] Health Maintenance Due Date Last Done Comments Breast Cancer Screening 1950 RSV Immunization Adult Patients (1 - Risk 50-74 years 1-dose series) 2002 Zoster Vaccines (1 of 2) 02/08/2014 12/14/2013, 10/09 COVID-19 Vaccine ( season) 2024 12/20/2021, 01/01/2021, 05/18/2020, Additional history exists Influenza Vaccine (#1) 2024 , 02/07/2022, 12/11/2020, Additional history exists Medicare Annual Wellness Visit 02/18/2025 02/19/2024 Social Influencers of Health Screening 02/18/2025 02/19/2024 Falls Risk Assessment 09/06/2025 09/06/2024, 024 Hypertension/CHF/CAD Annual BMP Blood Test 09/06/2025 09/06/2024, 05/04/2024, 04/13/2024, Additional history exists Colorectal Cancer Screening: Colonoscopy 01/21/2028 01/20/2023, 10/05/2017 [...] Modality Body Bone Densitometr y Enrique CRUZ IM DXA PROCEDURES Final Resul t * (ABNORMAL) Basic metabolic panel (09/06/2024 2:00 PM EDT) Sodium 137 133 - 145 mmol/L LAB CHEMISTRY METHOD 09/06/2024 3:46 PM EDT [facility] Potassium 4.9 3.5 - 5.5 mmol/L LAB CHEMISTRY METHOD 09/06/2024 3:46 PM EDT [facility] Chloride 105 96 - 110 mmol/L LAB CHEMISTRY METHOD 09/06/2024 3:46 PM EDT [facility] CO2 25 21 - 32 mmol/L LAB CHEMISTRY METHOD 09/06/2024 3:46 PM T [facility] Anion Gap 7 3 - 11 LAB CHEMISTRY METHOD 09/06/2024 3:46 PM EDT [facility] Glucose 95 70 - 100 mg/dL LAB CHEMISTRY METHOD 09/06/2024 3:46 PM EDT [facility] BUN 33(H) 5 - 25 mg/dL LAB CHEMISTRY METHOD 09/06/2024 3:46 PM EDT [facility] Creatinine 1.40(H) 0.50 - 1.10 mg/dL LAB CHEMISTRY METHOD 09/06/2024 3:46 PM EDT [facility] eGFR 40(L) >=60 mL/min/1. 73m2 LAB CHEMISTRY METHOD 09/06/2024 3:46 PM EDT [facility] Comment:Calculation based on the Chronic Kidney Disease Epidemiology Collaboration (CKD-EPI) equation refit without adjustment for race. BUN/Creatinine Ratio 23.6 LAB CHEMISTRY METHOD 09/06/2024 3:46 PM EDT [facility] Calcium 9.3 8.5 - 10.5 mg/dL LAB CHEMISTRY METHOD 09/06/2024 3:46 PM EDT [facility] Blood Venous blood specimen / Unknown Venipuncture / Unknown 09/06/2024 2:00 PM EDT 09/06/2024 2:00 PM EDT Enrique CRUZ LAB BLOOD ORDERABLES Final Res ult [facility] [address] [place] [address], * (ABNORMAL) Lipid panel with reflex to direct LDL (03/05/2024 9:59 AM EST) Cholesterol 219(H) 0 - 200 mg/dL LAB CHEMISTRY METHOD 03/05/2024 12:21 PM EST [facility] Triglycerides 41 0 - 150 mg/dL LAB CHEMISTRY METHOD 03/05/2024 12:21 PM EST [facility] HDL 113 >=40 mg/dL LAB CHEMISTRY METHOD 03/05/2024 12:21 PM EST [facility] LDL Calculated 98 0 - 100 mg/dL LAB CHEMISTRY METHOD 03/05/2024 12:21 PM EST [facility] VLDL Cholesterol Eric 8.2 mg/dL LAB CHEMISTRY METHOD 03/05/2024 12:21 PM EST [facility] Non HDL Chol. (LDL+VLDL) 106 <145 mg/dL LAB CHEMISTRY METHOD 03/05/2024 12:21 PM EST [facility] Chol/HDL Ratio 1.9 0.0 - 4.4 LAB CHEMISTRY METHOD 03/05/2024 12:21 PM EST [facility] Blood Venous blood specimen / Unknown Venipuncture / Unknown 03/05/2024 9:59 AM EST 03/05/2024 9:59 AM EST Enrique CRUZ LAB BLOOD ORDERABLES Final Res ult [facility] [address] [place] [address], * Colonoscopy (10/05/2017) Colonoscopy no interpretation , abstracted Anatomical Region Laterality Modality Other Historical Provider HEALTH MAINTENANCE Final Result * Hepatitis C Screening (11/02/2012) Hepatitis C Screening abstracted Historical Provider HEALTH MAINTENANCE Final Result from Last 3 Months or Most Recently Relevant to Health Maintenance Insurance MEDICARE [facility] Care Teams Interventional Pain Physician Relationship Specialty Start Date End Date Lindsay Knott MD PCP - General Internal Medicine 01/29/21
--- OUTSIDE RECORDS SUMMARY | 2024-12-22 11:14 | XMS_ITS | Clinical Summary ---
Author Organization [facility] Address [address] [employer] [address] [address] Phone Care Team Providers Care Senior Sustainability Advisor Name Role Phone Lindsay Knott MD Primary Care Pr ovider Allergies Active Allergy Reactions Criticality Noted Date Comments Cephalexin Rash Low 04/21/2024 Venom-Honey Bee Anxiety,Hives Low 04/16/2023 Medications LISINOPRIL ORAL Take 20 mg by mouth. 3 Active atorvastatin (LIPITOR) 40 MG tablet 3 Active ascorbic acid, vitamin C, (ASCORBIC ACID) 250 mg Chew Take by mouth. 3 Active anastrozole (ARIMIDEX) 1 mg tablet Take 1 mg by mouth daily. Active carBAMazepine (CARBATROL) 200 mg 12 hr capsule Take 200 mg by mouth 2 (two) times a day. Active indapamide (LOZOL) 1.25 mg tablet Take 1.25 mg by mouth every morning. Active SYNTHROID 125 mcg tabletIndications:P ostablative hypothyroidism Take 1 tablet (125 mcg total) by mouth every morning. 90 tablet 3 5 Active Active Problems Problem Noted Date Diagnosed Date Essential (primary) hypertension 04/16/2023 Assessment & Plan (04/16/2023 9:59 AM EST): BP high today, has cuff at home, advised to monitor & follow up with PCP. Hyperlipidemia 04/16/2023 Malignant neoplasm of female breast 04/16/2023 Psoriasis 04/16/2023 Trigeminal neuralgia 04/16/2023 Postablative hypothyroidism 03/10/1999 Overview (04/16/2023): S/p 7.6 mCi I-131 in 1999 for hyperthyroidism due to Graves Assessment & Plan (04/21/2024 9:39 AM EST): Clinically euthyroid. Reports good consistency taking rx appropriately. Will check labs & adjust rx as appropriate. To call/message via portal if hasn't heard from me with results within 1-2 weeks. If levels normal, will repeat labs yearly, sooner prn symptoms of thyroid dysfunction or > 10-15# weight change, or as otherwise clinically indicated. Assessment & Plan (04/16/2023 9:58 AM EST): Clinically euthyroid. Reports good consistency taking rx appropriately. Will check labs & adjust rx as appropriate. To call/message via portal if hasn't heard from me with results within 1-2 weeks. If levels normal, will repeat labs yearly, sooner prn symptoms of thyroid dysfunction or > 10-15# weight change, or as otherwise clinically indicated. Immunizations Immunization Administration Dates Next Due COVID-19 (Pre-12/30) Pfizer Vaccine, Bivalent 12 + 12/20/2021 COVID-19 (Pre-12/30) Pfizer Vaccine, mRNA, PF ,04/20/2020 Family History Medical History Relation Comments Diabetes Father pre-diabetes Stroke Mother Thyroid disease Mother ? thyroid Relation Status Comments Father Mother Social History Tobacco Use Types Packs/Day Years Used Date Smoking Tobacco: Never Assessed Education Answer Date Recorded Are you interested in more education? Not on keanu e 07/05/2022 Are you concerned about learning? Not on file 07/05/2022 No 07/05/2022 No 07/05/2022 Digital Access Answer Date Recorded No 08/03/2022 No 08/03/2022 Reliable internet access at home? Not on file 08/03/2022 Device with a working camera? Not on file Comments Unknown Sex and Gender Information Value Date Recorded Sex Assigned at Not on file Legal Sex Female 12:56 PM EDT Gender Identity Not on file Sexual Orientation Not on file Last Filed Vital Signs Vital Sign Reading Time Taken Comments Blood Pressure 128/70 04/21/2024 9:02 AM EST Pulse 86 04/21/2024 9:02 AM EST Temperature - - Respiratory Rate - - Oxygen Saturation - - Inhaled Oxygen Concentration - - Weight 88.5 kg (195 lb) 04/21/2024 9:02 AM EST Height - - Body Mass Index - - Plan of Treatment Upcoming Encounters Date Type Department Care Team (Late st Contact Info) Description 04/27/2025 10:00 AM EST Office Visit [facility] [address] [place] [phone] Deisy Hinkle MD [address] [place] [phone] [email or web address] Health Maintenance Due Date Last Done Comments Adult Td,Tdap Booster 1950 CARBAMAZEPINE (TEGRETOL) LEVEL 1950 CREATININE LEVEL 1952 POTASSIUM LEVEL 1952 DEPRESSION SCREENING 1964 SMOKING Hx and SMOKELESS TOBACCO SCREENING 1965 HEPATITIS C SCREENING 1970 PNEUMOCOCCAL VACCINES (50+ years) (1 of 2 - PCV) 1971 ZOSTER VACCINES (1 of 2) 1971 MAMMOGRAM 1992 COLOGUARD 1997 COLONOSCOPY 1997 COLORECTAL CANCER SCREENING 1997 FIT TEST 1997 FOBT 1997 SIGMOIDOSCOPY 1997 VIRTUAL COLONOSCOPY 1997 OSTEOPOROSIS SCREENING INITI AL (ONE-TIME) 2017 INFLUENZA VACCINE (#1) 2024 BLOOD PRESSURE 10/19/2024 04/21/2024 COVID-19 VACCINE (4 - 2024-2 6 season) 2024 12/20/2021, 05/18/2020, 04/20/2020 TSH LEVEL 04/21/2025 04/21/2024, 04/16/2023 RSV VACCINE (1 - 1-dose 75+ series) 2027 LIPID PANEL 03/05/2029 03/05/2024 HEPATITIS A VACCINES Aged Out No long er eligible based on patient's age to complete this topic HIB VACCINES Aged Out No longer eligi ble based on patient's age to complete this topic MENINGOCOCCAL VACCINES (ACWY) Aged Out No longer eligible based on patient's age to complete this topic MENINGOCOCCAL VACCINES (B) Aged Out N o longer eligible based on patient's age to complete this topic Medical Devices Not on file Procedures Procedure Name Priority Date/Time Associated Diagnosis Comments TSH WITH REFLEX Routine 04/21/2024 9:39 AM EST Postablative hypothyroidism from Last 3 Months or Most Recently Relevant to Health Maintenance Results * TSH with reflex (04/21/2024 9:39 AM EST) TSH 0.41 0.27 - 4.20 uIU/mL [facility] Blood 04/21/2024 9:39 AM EST 04/21/2024 9:41 AM EST Deisy Hinkle MD LAB BLOOD ORDERABLES F inal Result [address] [address] from Last 3 Months or Most Recently Relevant to Health Maintenance Insurance [employer] SUPPLEMENT MEDICARE PART A & B [email or web address] MEDEX SUPPLEMENT MEDICARE PART A & B [employer] CROSS MEDEX SUPPLEMENT MEDICARE PART A & B [email or web address] MEDEX SUPPLEMENT MEDICARE PART A & B Member Subscriber Plan / Payer ( fective 2017-) Name:Breanne Cardoso Member ID:[id number] Relation to Subscriber:Self Name:Breanne Cardoso Subscriber ID:[id number] Payer ID:[id number] Group ID:Not on file Type:Medicare Address: [employer] [address] [email or web address] MEDEX SUPPLEMENT MEDICARE PART A & B [employer] SUPPLEMENT MEDICARE PART A & B Care Teams Senior Sustainability Advisor Relationship Specialty Start Date End Date Lindsay Knott MD [address] [place] [id number] PCP - General Internal Medicine 04/16/23 Additional Source Comments The information contained in this document represents components of the legal health record. It is not the complete legal health record.[facility]
--- OUTSIDE RECORDS SUMMARY | 2024-12-22 11:14 | XMS_ITS | Clinical Summary ---
Author Organization [facility] Address [address] [place] [address] [place] [address] Phone Care Team Providers Care Deck Worker Name Role Phone Lindsay Knott MD Primary [...] Active Problems Problem Noted Date Diagnosed Date Stage 3a chronic kidney disease 12/06/2024 Microcalcifications of the breast 10/28/2024 Benign mammary [...] murmur Polyp of colon 10/05/2017 Overview (10/12/2024): [place] [facility] simon 09/2017. Due in 5 yrs [...] Encounters Date Type Department Care Team Description 12/06/2024 1:45 PM EDT Office Visit [facility] [address] [place], [place] [address] Nathanael Gonzalez MD Stage 3a chronic kidney disease (HCC) (Primary Dx); Renal osteodystrophy; Essential hypertension 11/02/2024 Orders Only [facility] [address] [place] [address] [address] [place] [phone] Nathanael Gonzalez MD 10/28/2024 4:15 PM EDT Office Visit [facility] [address] [place] [address] Nathanael Gonzalez MD Stage 3b chronic kidney disease (HCC) (Primary Dx); Essential hypertension; Renal osteodystrophy from Last 3 Months Immunizations Immunization Administration Dates Next Due Influenza Vaccine, Quadrival ent, Adjuvanted 02/07/2022 Influenza, Trivalent, Adjuvanted 11/20/2022,06/2020,12/07/2019 Pfizer SARS-COV-2 01/01/2021,,04/26/2020,2020 Td 09/19/2022,11/16/1998 Tdap 09/20/2009 [...] Sign Reading Time Taken Comments Blood Pressure 134/62 12/06/2024 1:54 PM EDT Pulse 108 12/06/2024 1:54 PM EDT Temperature - - Respiratory Rate - - Oxygen Saturation 96% 12/06/2024 1:54 PM EDT Inhaled Oxygen Concentration - - Weight 85 kg (187 lb 6.4 oz) 12/06/2024 1:54 PM EDT Height - - Body Mass Index - - Plan of Treatment Upcoming Encounters Date Type Department Care Team (Late st Contact Info) Description 06/06/2025 2:00 PM EDT Office Visit [facility] [address] [place] [phone] Nathanael Gonzalez MD [address] [facility] [address] [place] [address] Health Maintenance Due Date Last [...] <20 <20 Units [employer] Anti-U1 [employer] AB (RDL) <20 <20 Units [facility] [employer] [phone] Anti-RO (SS-A) Ab (RDL) <20 <20 Units [employer] Anti-LA (SS-B) AB (RDL) <20 <20 Units [employer] Anti-SCL-70 AB (RDL) <20 <20 Units [employer] Anticardiolipin IgG <15 <15 GPL U/mL [facility] Anticardiolipin IgA <12 <12 APL U/mL [facility] [phone] Anticardiolipin IgM 13 <13 MPL U/mL [facility] C3 Complement (RDL) 178 90 - 180 mg/dL [facility] C4 Complement (RDL) 34 10 - 40 mg/dL [facility] [phone] Comment:Please note refere nce interval change Thyroid Peroxidase Ab <9.0 <9.0 IU/mL [facility] [place] [phone] Anti-Chromatin Ab, IgG (RDL) <20 <20 Units [facility] [phone] Anti-CCP Ab, IgG / IgA (RDL) <20 <20 Units [facility] Rheumatoid Factor by Turb RDL <14 <14 IU/mL [facility] [place] Comment: Interpretation for Anti-Sm, Anti-U1 [employer], Anti-Ro, Anti-La: Negative: <20 Weak Positive: 20 [...] Ab by IFA (RDL) Positive( A) Negative [facility] Anti-Centromere Ab <1:40 <1:40 [facility] 11/02/2024 10:0 9 AM EDT 11/02/2024 Nathanael Gonzalez MD LAB BLOOD ORDERABLES Final Re sult [facility] [address] [place] [address] * Hepatitis C Virus (HCV) Ab [place] to Quantitative PCR and Genotyping (11/02/2024 10:09 AM EDT) Pathologist [facility] HCV Ab Non Reactive Non Reactive [facility] [place] 11/02/2024 10:0 9 AM EDT 11/02/2024 Nathanael Gonzalez MD LAB BLOOD ORDERABLES Final Re sult [facility] [address], [address] [place] [address] * Protein Elec + Interp, Serum (11/02/2024 10:09 AM EDT) Total Protein 7.0 6.0 - 8.5 g/dL [facility] [phone] Albumin 3.5 2.9 - 4.4 g/dL [facility] [phone] Xmsdu-9-Yeosrmmv 0.3 0.0 - 0.4 g/dL [facility] [phone] Vtcma-6-Jzznilyq 0.9 0.4 - 1.0 g/dL [facility] [phone] Beta Globulin 1.0 0.7 - 1.3 g/dL [facility] Gamma Globulin in Serum 1.4 0.4 - 1.8 g/dL [facility] [phone] M-Stewart Serum Not Observed Not Observed g/dL [facility] Globulin, Total 3.5 2.2 - 3.9 g/dL [facility] [phone] A/G Ratio 1.0 0.7 - 1.7 [facility] Please note Comment [facility] [phone] Comment: Protein electrophoresis scan will follow via computer, mail, or correspondence transcriber delivery. P E INTERPRETATION Comment [facility] [place] Comment: The SPE pattern appears unremarkable. Evidence of monoclonal protein is not apparent. PDF . [facility] [phone] 11/02/2024 10:0 9 AM EDT 11/02/2024 Nathanael Gonzaelz MD LAB BLOOD ORDERABLES Final Re sult [facility] [address] [place] [phone] * (ABNORMAL) DARIUS Titer and Pattern (11/02/2024 10:09 AM EDT) Homogeneous Pattern 1:160(H) <1:40 [facility] Note: Comment [facility] Comment:DARIUS performed by Ind irect Fluorescent Antibody (IFA) 11/02/2024 10:0 9 AM EDT 11/02/2024 Nathanael Gonzalez MD LAB BLOOD ORDERABLES Final Re sult [facility] [address] [place] [phone] * INTERPRETATION (11/02/2024 10:09 AM EDT) Interpretation Comment [facility] [place] Comment: Not infected with HCV unless early or acute infection is suspected (which may be delayed in an immunocompromised individual), or other evidence exists to indicate HCV infection. 11/02/2024 10:0 9 AM EDT 11/02/2024 Nathanael Gonzalez MD LAB [id number] SOLICITED RESULTS Final Result [facility] [address], [address] [place] [address] * Hepatitis B Surface Ab (Qual) (11/02/2024 10:09 AM EDT) Hepatitis B Surface Ab Qual Non Reactive [facility] [phone] Comment: Non Reactive: Not immune to HBV infection. Anti-HBs undetectable or less than 10 mIU/mL. Reactive: Evidence of HBV immunity. Anti-HBs levels greater than 10 mIU/mL. 11/02/2024 10:0 9 AM EDT 11/02/2024 Nathanael Gonzalez MD LAB BLOOD ORDERABLES Final Re sult [facility] [address], [address] [place] [phone] * Microscopic Examination (11/02/2024 10:09 AM EDT) WBC, Urine 0-5 0 - 5 /hpf [facility] RBC, Urine None seen 0 - 2 /hpf [facility] Squamous Epithelial, Urine None seen 0 - 10 /hpf [facility] Casts None seen None seen /lpf [facility] Bacteria, Urine None seen None seen/Few [facility] 11/02/2024 10:0 9 AM EDT 11/02/2024 Nathanael Gonzalez MD LAB MICROBIOLOGY - GENERAL OR DERABLES Final Result Performing Organization Address [facility]/ZIP Co de Phone Number [facility] [employer] [facility] [place] [address] [place] [address] * Protein, Total, Random Urine w/Creatinine (Protein/Creat Ratio) (11/02/2024 10:09 AM EDT) Creatinine, Ur 54.3 Not Estab. mg/dL [facility] Protein, Ur 8.3 Not Estab. mg/dL [facility] Urine Protein/Creatin ine Ratio 153 0 - 200 mg/g creat [facility] 11/02/2024 10:0 9 AM EDT 11/02/2024 Nathanael Gonzalez MD LAB URINE ORDERABLES Final Re sult Performing Organization Address [facility] Co de Phone Number [employer] [facility] [place] [address] [place] [address] * (ABNORMAL) Rosenberg/Lambda free LT chains w/ratio, Serum (11/02/2024 10:09 AM EDT) Free Rosenberg Lt Chains, S 32.2(H) 3.3 - 19.4 mg/L [facility] Free Lambda Lt Chains, S 26.7(H) 5.7 - 26.3 mg/L [facility] Free Rosenberg/Lambda Ratio 1.21 0.26 - 1.65 [facility] 11/02/2024 10:0 9 AM EDT 11/02/2024 Nathanael Gonzalez MD LAB BLOOD ORDERABLES Final Re sult Performing Organization Address City/[facility]/ZIP Co de Phone Number [facility] [address] [place] [address] * Urine Albumin / Creatinine Ratio (11/02/2024 10:09 AM EDT) Albumin, Urine <3.0 Not Estab. ug/mL [facility] Albumin/Creatin ine Ratio <6 0 - 29 mg/g creat [facility] Comment: Normal: 0 - 29 Moderately increased: 30 - 300 Severely increased: >300 11/02/2024 10:0 9 AM EDT 11/02/2024 Nathanael Gonzalez MD LAB URINE ORDERABLES Final Re sult Performing Organization Address City/[facility]/ZIP Co de Phone Number [facility] [address] [place] [address] * Hepatitis B core antibody, IgM (11/02/2024 10:09 AM EDT) Pathologist [facility] Hep B Core IgM Negative Negative [facility] 11/02/2024 10:0 9 AM EDT 11/02/2024 Nathanael Gonzalez MD LAB BLOOD ORDERABLES Final Re sult [facility] [place] [address], [address] [place] [address] * Vitamin D 25 Hydroxy (11/02/2024 10:09 AM EDT) Vitamin D, 25-OH, Total 42.1 30.0 - 100.0 ng/mL [facility] Comment: Vitamin D deficiency has been defined by the [place] of Medicine and an Endocrine Society practice guideline as a level of serum 25-OH vitamin D less than 20 ng/mL (1,2). The Endocrine Society went on to further define vitamin D insufficiency as a level between 21 and 29 ng/mL (2). 1. IOM ([place] of Medicine). 2010. Dietary reference intakes for calcium and D. [place]ast [place]: The National Academies Press. 2. Federico MF, Cherelle SMITH, Giacomo GREY, et al. Evaluation, treatment, and prevention of vitamin D deficiency: an Endocrine Society clinical practice guideline. JCEM. 2010; 96(7):1911-30. 11/02/2024 10:0 9 AM EDT 11/02/2024 Nathanael Gonzalez MD LAB BLOOD ORDERABLES Final Re sult [facility] [address] [place] [address] * Hepatitis B Surface Antigen (11/02/2024 10:09 AM EDT) Hep B Surface Ag Negative Negative [facility] 11/02/2024 10:0 9 AM EDT 11/02/2024 Nathanael Gonzalez MD LAB BLOOD ORDERABLES Final Re sult Performing Organization Address City/[facility]/ZIP Co de Phone Number [facility] [address], [address] [place] [address] * (ABNORMAL) Urinalysis with microscopic (11/02/2024 10:09 AM EDT) Specific Warrior, Urine 1.011 1.005 - 1.030 [facility] [phone] pH Urine 6.0 5.0 - 7.5 [facility] Color, Urine Yellow Yellow [facility] Appearance Urine Clear Clear [facility] [place] WBC Esterase Urine 2+(A) Negative [facility] Protein, Ur Negative Negative/Tra ce [facility] Glucose, Ur Negative Negative [facility] Ketones, Urine Negative Negative [facility] [place] Blood Urine Negative Negative [facility] Bilirubin Urine Negative Negative [facility] [place] [phone] Urobilinogen Urine 0.2 0.2 - 1.0 mg/dL [facility] [phone] Nitrite, Urine Negative Negative [facility] [place] Microscopic Examination See below: [facility] Comment:Microscopic was noris cated and was performed. 11/02/2024 10:0 9 AM EDT 11/02/2024 us Nathanael Gonzalez MD LAB URINE ORDERABLES Final Re sult [facility] [address] [place] [address] * (ABNORMAL) CBC and Differential (11/02/2024 10:09 AM EDT) WBC 5.6 3.4 - 10.8 x10E3/uL [facility] RBC 3.36(L) 3.77 - 5.28 x10E6/uL [facility] Hemoglobin 10.0(L) 11.1 - 15.9 g/dL [facility] Hematocrit 31.0(L) 34.0 - 46.6 % [facility] MCV 92 79 - 97 fL [facility] MCH 29.8 26.6 - 33.0 pg [facility] MCHC 32.3 31.5 - 35.7 g/dL [facility] RDW 11.9 11.7 - 15.4 % [facility] Platelets 227 150 - 450 x10E3/uL [facility] Neutrophils Relative 64 Not Estab. % [facility] Lymphocytes Relative 23 Not Estab. % [facility] Monocytes 8 Not Estab. % [facility] Eosinophils Relative 4 Not Estab. % [facility] Basophils Relative 1 Not Estab. % [facility] Neutrophils Absolute 3.6 1.4 - 7.0 x10E3/uL [facility] Lymphocytes Absolute 1.3 0.7 - 3.1 x10E3/uL [facility] Monocytes Absolute 0.5 0.1 - 0.9 x10E3/uL [facility] Eosinophils Absolute 0.2 0.0 - 0.4 x10E3/uL [facility] Basophils Absolute 0.0 0.0 - 0.2 x10E3/uL [facility] Immature Granulocytes 0 Not Estab. % [facility] Immature Grans (Absolute) 0.0 0.0 - 0.1 x10E3/uL [facility] 11/02/2024 10:0 9 AM EDT 11/02/2024 us Nathanael Gonzalez MD LAB BLOOD ORDERABLES Final Re sult [facility] [address] [place] [address] * C3 Complement (11/02/2024 10:09 AM EDT) C3 Complement 150 82 - 167 mg/dL [facility] 11/02/2024 10:0 9 AM EDT 11/02/2024 Nathanael Gonzalez MD LAB BLOOD ORDERABLES Final Re sult Performing Organization Address [facility] Co de Phone Number [facility] [address] [place] [address] * C4 Complement (11/02/2024 10:09 AM EDT) C4 Complement 29 12 - 38 mg/dL [facility] 11/02/2024 10:0 9 AM EDT 11/02/2024 Nathanael Gonzalez MD LAB BLOOD ORDERABLES Final Re sult Performing Organization Address [facility] de Phone Number [facility] [address] [place] [address] * PTH, Intact (11/02/2024 10:09 AM EDT) PTH 37 15 - 65 pg/mL [facility] 11/02/2024 10:0 9 AM EDT 11/02/2024 Nathanael Gonzalez MD LAB BLOOD ORDERABLES Final Re sult Performing Organization Address [facility] de Phone Number [facility] [address] [place] [address] * Magnesium (11/02/2024 10:09 AM EDT) Magnesium 2.0 1.6 - 2.3 mg/dL [facility] 11/02/2024 10:0 9 AM EDT 11/02/2024 Nathanael Gonzalez MD LAB BLOOD ORDERABLES Final Re sult Performing Organization Address City/[facility]/ZIP Co de Phone Number [facility] [address] [place] [address] * (ABNORMAL) Renal Function Panel (11/02/2024 10:09 AM EDT) Glucose 99 70 - 99 mg/dL [facility] BUN 32(H) 8 - 27 mg/dL [facility] Creatinine 1.23(H) 0.57 - 1.00 mg/dL [facility] eGFR CKD-EPI CR 2020 47(L) >59 mL/min/1.7 3 [facility] BUN/Creatinine Ratio 26 12 - 28 [facility] Sodium 133(L) 134 - 144 mmol/L [facility] Potassium 5.0 3.5 - 5.2 mmol/L [facility] Chloride 98 96 - 106 mmol/L [facility] Bicarbonate (CO2) 20 20 - 29 mmol/L [facility] Calcium 9.3 8.7 - 10.3 mg/dL [facility] Albumin 4.2 3.8 - 4.8 g/dL [facility] Phosphorus 3.2 3.0 - 4.3 mg/dL [facility] 11/02/2024 10:0 9 AM EDT 11/02/2024 us Nathanael Gonzalez MD LAB BLOOD ORDERABLES Final Re sult [facility] [place] [address] [place] [address] from Last 3 Months Insurance Medicare [facility] Care Teams Deck Worker Relationship Specialty Start Date End Date Lindsay Knott MD [address] [place] [phone] PCP - General Internal Medicine 10/07/24
== END 2024-12-22 10:12 | disposition home or self-care (01) ==
LOC: HO.HSM 09:46
PROVIDERS: PCP Internal Medicine; Visit Provider Psychiatry & Neurology Neurology
DX: G50.0 Trigeminal neuralgia (principal)
CPT/HCPCS: 99214

== ENCOUNTER → 2024-12-22 09:45 | Outpatient (BNVA) | payer MEDICARE, SELFPAY | PROVIDERS: PCP Internal Medicine; Visit Provider Psychiatry & Neurology Neurology | DX: G50.0 Trigeminal neuralgia (principal) | CPT/HCPCS: 99212 ==